=== PATIENT | male | born 1945 | race Caucasian/White ===

== ENCOUNTER 2018-09-10 08:54 | Inpatient (IN) | payer OTHER, MEDICARE ==
[~2018-09-10] VITALS: Ht 177.8 cm; Wt 65.3 kg
[2018-09-10 08:54] VITALS: BP_SYST 122
[2018-09-10] MEDS ORDERED: LORA-259 PO (09:04)
[2018-09-10] MEDS ORDERED: LIP40 PO (09:14)
[2018-09-10] MEDS ORDERED: GLUC1VIA4 IJ (09:14)
[2018-09-10] MEDS ORDERED: LEVO25TA7 PO (09:14)
[2018-09-10] MEDS ORDERED: HYDR-4039 PO (09:14)
[2018-09-10] MEDS ORDERED: CLOP300T2 PO (09:14)
[2018-09-10] MEDS ORDERED: HYG25 PO (09:14)
[2018-09-10] MEDS ORDERED: INSU200I SQ (09:14)
[2018-09-10] MEDS ORDERED: SERT50TA12 PO (09:14)
[2018-09-10] MEDS ORDERED: NOR10 PO (09:14)
[2018-09-10] MEDS ORDERED: VITD2000 PO (09:14)
[2018-09-10] MEDS ORDERED: INSU100V9 SQ (09:14)
[2018-09-10 09:33] LABS: BASOPHILS # (AUTO) 0.1 K/uL (0.0-0.2); BASOPHILS % (AUTO) 1.2 % (0.0-2.0); EOSINOPHILS % (AUTO) 0.8 % (0.0-4.0); HEMATOCRIT 34.5 % (36-54); HEMOGLOBIN 10.9 g/dL (14.0-18.0); LYMPHOCYTES # (AUTO) 0.8 K/uL (1.0-5.5); LYMPHOCYTES % (AUTO) 15.9 % (20.5-51.5); MEAN CORPUSCULAR HEMOGLOBIN 27 pg (27-31); MEAN CORPUSCULAR HGB CONC 31 % (32-36); MEAN CORPUSCULAR VOLUME 87 fL (79.0-98.0); MONOCYTES # (AUTO) 0.3 K/uL (0.0-1.0); MONOCYTES % (AUTO) 6.7 % (1.7-9.3); NEUTROPHILS # (AUTO) 3.8 K/uL (1.8-7.7); NEUTROPHILS % (AUTO) 75.4 % (40.0-70.0); PLATELET COUNT (AUTO) 183 K/uL (130-430); RED BLOOD CELL COUNT(AUTO) 3.98 MIL/uL (4.2-6.2); RED CELL DISTRIBUTION WIDTH 12.1 % (9.0-15.0)
[2018-09-10 09:55] LABS: ANION GAP 13 (5-15); CALCIUM 9.3 mg/dL (8.4-11.0); CHLORIDE 109 mmol/L (98-107); CREATININE 3.73 mg/dL (0.55-1.30); GLUCOSE 228 mg/dL (70-99); POTASSIUM 4.2 mmol/L (3.5-5.1); SODIUM SERUM 149 mmol/L (136-145); UREA NITROGEN, BLOOD 75 mg/dL (8-21)
[2018-09-10] MEDS ORDERED: NACL 0.9% 1,000 ML IV ONE (10:15)
[2018-09-10] MEDS ORDERED: POTASSIUM CHLORIDE 20 MEQ TAB.PRT.SR PO PRN (13:30)
[2018-09-10] MEDS ORDERED: ACETAMINOPHEN 325 MG TABLET PO PRN ×2 (13:30)
[2018-09-10] MEDS ORDERED: MAGNESIUM SULFATE 50 ML IV PRN (13:30)
[2018-09-10] MEDS ORDERED: ONDANSETRON HCL 4 MG/2 ML VIAL IVP PRN (13:30)
[2018-09-10] MEDS ORDERED: HYDROcodone/ACETAMIN 5-325 MG TAB (NORCO/ VICODIN) PO PRN (13:30)
[2018-09-10] MEDS ORDERED: MORPHINE 4 MG/ML INJ. SYRINGE IVP PRN ×2 (13:30)
[2018-09-10] MEDS ORDERED: LORazepam 1 MG TABLET PO PRN (13:30)
[2018-09-10] MEDS ORDERED: DOCUSATE SODIUM 100 MG CAPSULE PO PRN (13:30)
[2018-09-10] MEDS ORDERED: GLUCOSE 15 GM GEL (in 37.5 GM TUBE) PO PRN (13:30)
[2018-09-10] MEDS ORDERED: MUPIROCIN 2% TOPICAL OINTMENT 22 GM NS PRN (13:30)
[2018-09-10 13:41] VITALS: BP_SYST 164
[2018-09-10] MEDS: NACL 0.9% 1,000 ML IV SCH (14:07)
[2018-09-10 14:37] VITALS: BP_SYST 139
[2018-09-10] MEDS ORDERED: LORazepam 2 MG/ML VIAL IM PRN (16:00)
[2018-09-10] MEDS ORDERED: LORazepam 2 MG/ML VIAL IVP PRN (16:00)
[2018-09-10] MEDS: INSULIN ASPART 100 UNITS/ML, 10 ML VIAL (NovoLOG) SUBCUT PRN ×2 (17:00→21:27)
[2018-09-10] MEDS: hydrALAZINE HCL 25 MG TABLET PO SCH (21:19)
[2018-09-10] MEDS: ATORVASTATIN 20 MG TABLET PO SCH (21:19)
[2018-09-11 00:36] VITALS: BP_SYST 133
[2018-09-11] MEDS: NACL 0.9% 1,000 ML IV SCH (01:11)
[2018-09-11] MEDS: LEVOTHYROXINE SODIUM 0.025 MG TABLET PO SCH (05:39)
[2018-09-11 07:10] LABS: EOSINOPHILS # (AUTO) 0.1 K/uL (0.0-0.4); EOSINOPHILS % (AUTO) 1.9 % (0.0-4.0); HEMATOCRIT 34.8 % (36-54); LYMPHOCYTES # (AUTO) 1.1 K/uL (1.0-5.5); LYMPHOCYTES % (AUTO) 23.9 % (20.5-51.5); MEAN CORPUSCULAR HEMOGLOBIN 28 pg (27-31); MEAN CORPUSCULAR HGB CONC 32 % (32-36); MEAN CORPUSCULAR VOLUME 87 fL (79.0-98.0); MONOCYTES # (AUTO) 0.3 K/uL (0.0-1.0); NEUTROPHILS # (AUTO) 3.1 K/uL (1.8-7.7); NEUTROPHILS % (AUTO) 66.2 % (40.0-70.0); PLATELET COUNT (AUTO) 181 K/uL (130-430); RED BLOOD CELL COUNT(AUTO) 4.02 MIL/uL (4.2-6.2); RED CELL DISTRIBUTION WIDTH 12.3 % (9.0-15.0); WHITE BLOOD COUNT (AUTO) 4.6 K/uL (4.8-10.8)
[2018-09-11 07:28] LABS: ANION GAP 12 (5-15); CALCIUM 9.1 mg/dL (8.4-11.0); CHLORIDE 114 mmol/L (98-107); CREATININE 2.87 mg/dL (0.55-1.30); GLUCOSE 144 mg/dL (70-99); POTASSIUM 4.1 mmol/L (3.5-5.1); SODIUM SERUM 152 mmol/L (136-145); UREA NITROGEN, BLOOD 66 mg/dL (8-21)
[2018-09-11 07:36] LABS: PHOSPHORUS 3.2 mg/dL (2.7-4.5)
[2018-09-11 08:10] VITALS: BP_SYST 158
[2018-09-11] MEDS: ENOXAPARIN SODIUM 30 MG/0.3 ML SYRINGE SUBCUT SCH (09:03)
[2018-09-11] MEDS: SERTRALINE HCL 50 MG TABLET PO SCH (09:04)
[2018-09-11] MEDS: CHOLECALCIFEROL (VITAMIN D3) 2,000 UNIT TABLET PO SCH (09:04)
[2018-09-11] MEDS: CLOPIDOGREL BISULFATE 75 MG TABLET PO SCH (09:04)
[2018-09-11] MEDS: amLODIPine BESYLATE 10 MG TABLET PO SCH (09:04)
[2018-09-11] MEDS: hydrALAZINE HCL 25 MG TABLET PO SCH ×3 (09:05→21:23)
[2018-09-11] MEDS: CHLORTHALIDONE 25 MG TABLET (HYGROTON) PO SCH (09:06)
[2018-09-11] MEDS: INSULIN ASPART 100 UNITS/ML, 10 ML VIAL (NovoLOG) SUBCUT PRN ×3 (11:41→21:36)
[2018-09-11 12:42] VITALS: BP_SYST 139
[2018-09-11] MEDS: 0.45% NACL 1,000 ML IV SCH (13:20)
[2018-09-11 16:37] VITALS: BP_SYST 128
[2018-09-11 20:00] VITALS: BP_SYST 135
[2018-09-11] MEDS: ATORVASTATIN 20 MG TABLET PO SCH (21:24)
[2018-09-12 01:27] VITALS: BP_SYST 136
[2018-09-12] MEDS: LEVOTHYROXINE SODIUM 0.025 MG TABLET PO SCH (06:33)
[2018-09-12] MEDS: INSULIN ASPART 100 UNITS/ML, 10 ML VIAL (NovoLOG) SUBCUT PRN ×4 (06:41→21:21)
[2018-09-12] MEDS: 0.45% NACL 1,000 ML IV SCH (06:45)
[2018-09-12 07:08] LABS: ANION GAP 7 (5-15); CALCIUM 8.4 mg/dL (8.4-11.0); CHLORIDE 108 mmol/L (98-107); CREATININE 2.29 mg/dL (0.55-1.30); GLUCOSE 185 mg/dL (70-99); POTASSIUM 3.9 mmol/L (3.5-5.1); SODIUM SERUM 141 mmol/L (136-145); UREA NITROGEN, BLOOD 53 mg/dL (8-21)
[2018-09-12 07:12] LABS: BASOPHILS % (AUTO) 0.7 % (0.0-2.0); EOSINOPHILS # (AUTO) 0.1 K/uL (0.0-0.4); EOSINOPHILS % (AUTO) 1.1 % (0.0-4.0); HEMATOCRIT 28.2 % (36-54); HEMOGLOBIN 9.3 g/dL (14.0-18.0); LYMPHOCYTES # (AUTO) 1.1 K/uL (1.0-5.5); LYMPHOCYTES % (AUTO) 19.5 % (20.5-51.5); MEAN CORPUSCULAR HEMOGLOBIN 28 pg (27-31); MEAN CORPUSCULAR HGB CONC 33 % (32-36); MEAN CORPUSCULAR VOLUME 86 fL (79.0-98.0); MONOCYTES # (AUTO) 0.4 K/uL (0.0-1.0); MONOCYTES % (AUTO) 7.6 % (1.7-9.3); NEUTROPHILS # (AUTO) 3.9 K/uL (1.8-7.7); NEUTROPHILS % (AUTO) 71.1 % (40.0-70.0); PLATELET COUNT (AUTO) 130 K/uL (130-430); RED CELL DISTRIBUTION WIDTH 12.4 % (9.0-15.0); WHITE BLOOD COUNT (AUTO) 5.5 K/uL (4.8-10.8)
[2018-09-12 09:08] VITALS: BP_SYST 141
[2018-09-12] MEDS: SERTRALINE HCL 50 MG TABLET PO SCH (09:10)
[2018-09-12] MEDS: CHOLECALCIFEROL (VITAMIN D3) 2,000 UNIT TABLET PO SCH (09:10)
[2018-09-12] MEDS: CLOPIDOGREL BISULFATE 75 MG TABLET PO SCH (09:10)
[2018-09-12] MEDS: hydrALAZINE HCL 25 MG TABLET PO SCH ×3 (09:10→21:04)
[2018-09-12] MEDS: amLODIPine BESYLATE 10 MG TABLET PO SCH (09:10)
[2018-09-12] MEDS: CHLORTHALIDONE 25 MG TABLET (HYGROTON) PO SCH (09:11)
[2018-09-12] MEDS: ENOXAPARIN SODIUM 30 MG/0.3 ML SYRINGE SUBCUT SCH (09:12)
[2018-09-12 12:07] VITALS: BP_SYST 126
[2018-09-12 16:35] VITALS: BP_SYST 126
[2018-09-12 20:35] VITALS: BP_SYST 133
[2018-09-12] MEDS: ATORVASTATIN 20 MG TABLET PO SCH (21:04)
[2018-09-13] MEDS: 0.45% NACL 1,000 ML IV SCH (00:59)
[2018-09-13 01:20] VITALS: BP_SYST 149
[2018-09-13] MEDS: LEVOTHYROXINE SODIUM 0.025 MG TABLET PO SCH (06:14)
[2018-09-13 07:17] LABS: ANION GAP 9 (5-15); BASOPHILS % (AUTO) 0.9 % (0.0-2.0); CALCIUM 8.2 mg/dL (8.4-11.0); CHLORIDE 105 mmol/L (98-107); EOSINOPHILS # (AUTO) 0.1 K/uL (0.0-0.4); EOSINOPHILS % (AUTO) 1.3 % (0.0-4.0); GLUCOSE 142 mg/dL (70-99); HEMOGLOBIN 10.1 g/dL (14.0-18.0); MEAN CORPUSCULAR HEMOGLOBIN 28 pg (27-31); MEAN CORPUSCULAR HGB CONC 32 % (32-36); MEAN CORPUSCULAR VOLUME 85 fL (79.0-98.0); MONOCYTES # (AUTO) 0.4 K/uL (0.0-1.0); MONOCYTES % (AUTO) 8.4 % (1.7-9.3); NEUTROPHILS # (AUTO) 3.2 K/uL (1.8-7.7); NEUTROPHILS % (AUTO) 68.4 % (40.0-70.0); PLATELET COUNT (AUTO) 134 K/uL (130-430); POTASSIUM 3.9 mmol/L (3.5-5.1); RED BLOOD CELL COUNT(AUTO) 3.63 MIL/uL (4.2-6.2); RED CELL DISTRIBUTION WIDTH 12.2 % (9.0-15.0); SODIUM SERUM 141 mmol/L (136-145); UREA NITROGEN, BLOOD 47 mg/dL (8-21); WHITE BLOOD COUNT (AUTO) 4.7 K/uL (4.8-10.8)
[2018-09-13 07:25] LABS: PHOSPHORUS 2.7 mg/dL (2.7-4.5)
[2018-09-13 08:00] VITALS: BP_SYST 118
[2018-09-13] MEDS: SERTRALINE HCL 50 MG TABLET PO SCH (08:37)
[2018-09-13] MEDS: hydrALAZINE HCL 25 MG TABLET PO SCH ×2 (08:37→15:04)
[2018-09-13] MEDS: CHOLECALCIFEROL (VITAMIN D3) 2,000 UNIT TABLET PO SCH (08:37)
[2018-09-13] MEDS: CLOPIDOGREL BISULFATE 75 MG TABLET PO SCH (08:38)
[2018-09-13] MEDS: amLODIPine BESYLATE 10 MG TABLET PO SCH (08:38)
[2018-09-13] MEDS: ENOXAPARIN SODIUM 30 MG/0.3 ML SYRINGE SUBCUT SCH (08:39)
[2018-09-13 11:28] VITALS: BP_SYST 140
[2018-09-13] MEDS: INSULIN ASPART 100 UNITS/ML, 10 ML VIAL (NovoLOG) SUBCUT PRN (11:39)
[2018-09-13 15:21] VITALS: BP_SYST 145
[2018-09-13 15:30] VITALS: BP_SYST 126
== END 2018-09-13 16:30 | DRG 73 ==
LOC: SED 08:54 → STU 13:07
PROVIDERS: ADMIT Family Medicine; ATTEND Family Medicine
DX: G90.8 Other disorders of autonomic nervous system (principal); N17.0 Acute kidney failure with tubular necrosis; N18.6 End stage renal disease; I12.0 Hypertensive chronic kidney disease with stage 5 chronic kidney disease or end stage renal disease; E87.0 Hyperosmolality and hypernatremia; G93.40 Encephalopathy, unspecified; Z66 Do not resuscitate; E11.22 Type 2 diabetes mellitus with diabetic chronic kidney disease; E78.00 Pure hypercholesterolemia, unspecified; D63.8 Anemia in other chronic diseases classified elsewhere; R56.9 Unspecified convulsions; F32.9 Major depressive disorder, single episode, unspecified; F01.50 Vascular dementia, unspecified severity, without behavioral disturbance, psychotic disturbance, mood disturbance, and anxiety; E86.1 Hypovolemia; E86.0 Dehydration; E03.9 Hypothyroidism, unspecified; E87.8 Other disorders of electrolyte and fluid balance, not elsewhere classified; Z85.46 Personal history of malignant neoplasm of prostate; Z95.1 Presence of aortocoronary bypass graft; Z88.6 Allergy status to analgesic agent; Z79.899 Other long term (current) drug therapy; Z79.02 Long term (current) use of antithrombotics/antiplatelets; Z79.4 Long term (current) use of insulin
CPT/HCPCS: 36415; 70450-TC; 71045; 80048; 82962; 83036; 83735-TC; 84100-TC; 85025; 87081; 93306; 95816; 96360; 97110-GP; 97530-GP; 99285; G0378; J1650; J1815; J7030